=== PATIENT | female | born 1995 | race Two or more races ===

== ENCOUNTER 2023-12-13 22:04 | Emergency (ER) | payer OTHER ==
[2023-12-13 22:23] VITALS: BP 128/85; PULSE 82; RESP 20; TEMP 97.6; BMI 37.2
[2023-12-14 00:04] LABS: BASO % 0.4 % (0-2.0); EOS % 0.6 % (0-4.5); HEMATOCRIT 37.6 % (32.4-45.2); HEMOGLOBIN 12.5 GM/dL (10.7-15.3); LYMPH % 8.5 % (8-40); MCH 28.3 pg (25.7-33.7); MCHC 33.2 g/dl (32.0-36.0); MEAN CELL VOLUME 85.2 fl (80-96); MEAN PLT VOLUME 6.9 fl (7.5-11.1); MONO % 3.9 % (3.8-10.2); NEUT % 86.6 % (42.8-82.8); PLATELET COUNT 349 10^3/uL (134-434); RBC 4.42 M/mm3 (3.60-5.2); RDW 13.6 % (11.6-15.6); WHITE BLOOD COUNT 10.6 K/mm3 (4.0-10.0)
[2023-12-14 00:08] LABS: EPI CELLS >36 /uL (0-25.1); HCG,QUALITATIVE URINE Negative; HYALINE CASTS 6 /uL (0-3.1); PH,URINE 5.5 (5.0-8.0); URINE APPEARANCE CLOUDY; URINE BACTERIA 4959 /uL (0-1359); URINE BILIRUBIN 1+ (NEGATIVE); URINE COLOR DK YELLOW; URINE GLUCOSE (UA) NEGATIVE (NEGATIVE); URINE KETONE TRACE (NEGATIVE); URINE LEUK ESTERASE TRACE (NEGATIVE); URINE NITRITE NEGATIVE (NEGATIVE); URINE PROTEIN TRACE (NEGATIVE); URINE RBC 10 /uL (0-23.9); URINE WBC 176 /uL (0-25.8)
[2023-12-14 00:35] LABS: INR 0.97 (0.83-1.09)
[2023-12-14 00:37] LABS: ACTIVATED PTT 26.1 SECONDS (25.2-36.5)
[2023-12-14 01:05] LABS: POTASSIUM 4.7 mmol/L (3.5-5.1)
[2023-12-14 01:07] LABS: CALCIUM 9.1 mg/dL (8.5-10.1)
[2023-12-14 01:08] LABS: ALBUMIN 3.5 g/dl (3.4-5.0); BLOOD UREA NITROGEN 12.1 mg/dL (7-18)
[2023-12-14 01:11] LABS: CREATININE 0.9 mg/dL (0.55-1.3)
[2023-12-14 01:12] LABS: BILIRUBIN,TOTAL 0.8 mg/dL (0.2-1); TOT PROT 7.4 g/dl (6.4-8.2)
[2023-12-14 01:19] LABS: HIV INTERPRETATION NEGATIVE (NEGATIVE)
== END 2023-12-14 05:32 | disposition home or self-care (01) ==
LOC: JER 22:04
DX: R10.11 Right upper quadrant pain (principal); R10.13 Epigastric pain; R11.2 Nausea with vomiting, unspecified; R06.02 Shortness of breath; R50.9 Fever, unspecified; R61 Generalized hyperhidrosis
CPT/HCPCS: 36415; 74177-TC; 80053; 81003; 82272; 83605; 83690; 84703; 85025; 85610; 85730; 86803; 86850; 86900; 86901; 87086; 87389; 93005; 93010; 99285-25; Q9967